=== PATIENT | female | born 1970 | race Caucasian/White ===

== ENCOUNTER 2021-07-28 10:54 | Emergency (ER) | payer OTHER ==
[~2021-07-28] VITALS: Ht 177.8 cm; Wt 74.8 kg
[2021-07-28] MEDS ORDERED: TETANUS/DIPHTHERIA TOX ADULT 0.5 ML SYR IM ONE (13:00)
== END 2021-07-28 14:10 | disposition home or self-care (01) ==
LOC: ER 11:05
DX: S00.83XA Contusion of other part of head, initial encounter (principal); S60.222A Contusion of left hand, initial encounter; W01.0XXA Fall on same level from slipping, tripping and stumbling without subsequent striking against object, initial encounter; Y93.K1 Activity, walking an animal; Y92.89 Other specified places as the place of occurrence of the external cause
CPT/HCPCS: 70450; 71250; 72125; 90714; 99283

== ENCOUNTER 2022-01-11 17:00 | Emergency (ER) | payer SELFPAY ==
[~2022-01-11] VITALS: Ht 177.8 cm; Wt 74.8 kg
[2022-01-11] MEDS ORDERED: LIDOCAINE HCL 1% LOCAL INJ 20 ML VIAL INJ ONE (17:15)
[2022-01-11] MEDS ORDERED: CEPHALEXIN500 M1 PO (17:40)
== END 2022-01-11 17:49 | disposition home or self-care (01) ==
LOC: ER 17:03
DX: S66.323A Laceration of extensor muscle, fascia and tendon of left middle finger at wrist and hand level, initial encounter (principal); W26.0XXA Contact with knife, initial encounter; Y93.89 Activity, other specified; Z90.49 Acquired absence of other specified parts of digestive tract
CPT/HCPCS: 99283

== ENCOUNTER 2024-05-18 12:38 | Emergency (ER) | payer OTHER ==
[~2024-05-18] VITALS: Ht 154.9 cm; Wt 65.8 kg
[~2024-05-18 12:38] MED LIST: CEPHALEXIN500 M1 PO
[2024-05-18 13:12] LABS: BASOPHILS % 0.4 % (0.0-1.0); EOSINOPHILS % 0.8 % (0.0-6.0); HEMATOCRIT 32.5 % (34.2-44.1); HEMOGLOBIN 10.4 g/dL (12.0-16.0); LYMPHOCYTES # (AUTO) 1.1 (1.0-3.2); LYMPHOCYTES % 22.9 % (18.0-39.1); MEAN CORPUSCULAR HEMOGLOBIN 26.6 pg (28-32); MEAN CORPUSCULAR VOLUME 83.1 fL (81-99); MONOCYTES # (AUTO) 0.4 (0.2-0.8); MONOCYTES % 8.5 % (4.4-11.3); NEUTROPHILS # (AUTO) 3.3 (2.1-6.9); NEUTROPHILS % 67.2 % (38.7-80.0); PLATELET COUNT 208 x10e3/uL (140-360); RED BLOOD COUNT 3.91 x10e6/uL (3.6-5.1); RED CELL DISTRIBUTION WIDTH 15.9 % (11.7-14.4); WHITE BLOOD COUNT 4.97 x10e3/uL (4.8-10.8)
[2024-05-18 13:21] LABS: INR 0.85; PROTHROMBIN TIME 12.2 seconds (11.9-14.5)
[2024-05-18 13:22] LABS: PARTIAL THROMBOPLASTIN TIME 27.5 seconds (23.8-35.5)
[2024-05-18 13:26] LABS: ALBUMIN 3.9 g/dL (3.5-5.0); ALBUMIN/GLOBULIN RATIO 1.2 (0.8-2.0); ANION GAP 14.5 mmol/L (8-16); BILIRUBIN,TOTAL 0.6 mg/dL (0.2-1.2); CALCIUM 8.8 mg/dL (8.4-10.2); CREATININE, SERUM 0.73 mg/dL (0.57-1.11); MAGNESIUM 1.6 MG/DL (1.3-2.1); POTASSIUM 3.5 mmol/L (3.5-5.1); TOTAL PROTEIN 7.1 g/dL (6.5-8.1)
[2024-05-18 13:26] LABS: CLARITY,URINE HAZY (CLEAR); COLOR,URINE YELLOW (YELLOW)
[2024-05-18 13:27] LABS: BACTERIA,URINE FEW /HPF; BILIRUBIN,URINE NEGATIVE (NEGATIVE); EPITHELIAL CELLS,URINE FEW /LPF; GLUCOSE, URINE NEGATIVE (NEGATIVE); KETONES,URINE NEGATIVE (NEGATIVE); LEUKOCYTE ESTERASE ,URINE NEGATIVE (NEGATIVE); NITRITE,URINE NEGATIVE (NEGATIVE); PH,URINE 5.5 (5 - 7); PROTEIN,URINE DIPSTICK NEGATIVE (NEGATIVE); RBC,URINE 0-5 /HPF (0-5); URINE UROBILINOGEN 1 mg/dL (0.2 - 1); WBC,URINE (MAN) 0-5 /HPF (0-5)
[2024-05-18 13:46] LABS: THYROID STIMULATING HORMONE 1.042 uIU/mL (0.350-4.940); TROPONIN I 0.214 ng/mL (0-0.300)
[2024-05-18 14:07] VITALS: PULSE 78; RESP 16; TEMP 97.9
[2024-05-18 16:10] VITALS: BP 126/76; PULSE 70; RESP 16; TEMP 98.7; O2SAT 98
[2024-05-18] MEDS ORDERED: IOPAMIDOL 370 MG/ML 100 ML INFUS..BTL INJ ONE (17:50)
== END 2024-05-18 16:12 | disposition home or self-care (01) ==
LOC: ER 13:00
DX: R53.81 Other malaise (principal); R63.4 Abnormal weight loss; Z85.028 Personal history of other malignant neoplasm of stomach; F41.9 Anxiety disorder, unspecified; F32.A Depression, unspecified; M54.9 Dorsalgia, unspecified; G89.29 Other chronic pain; R94.31 Abnormal electrocardiogram [ECG] [EKG]
CPT/HCPCS: 36415; 71260; 74177; 80053; 81001; 82550; 82948; 83690; 83735; 84443; 84484; 85025; 85610; 85730; 93005; 99283; Q9967